=== PATIENT | female | born 1960 | race Two or more races ===

== ENCOUNTER 2021-08-04 14:58 | Inpatient (IN) | payer MEDICAID, OTHER ==
[~2021-08-04] VITALS: Ht 152.4 cm; Wt 98.4 kg
[2021-08-04] MEDS ORDERED: ONDANSETRON HCL 4 MG/2 ML VIAL IV ONE ×2 (16:00→16:45)
[2021-08-04] MEDS ORDERED: HYDROmorphone HCL 2 MG/ML VL IV ONE (16:00)
[2021-08-04] MEDS ORDERED: ONDANSETRON HCL 4 MG/2 ML VIAL ONE (16:38)
[2021-08-04] MEDS ORDERED: ACETAMINOPHEN 325 MG TAB PO PRN (21:00)
[2021-08-04] MEDS ORDERED: DOCUSATE SOD 100 MG CAP PO PRN (21:00)
[2021-08-04] MEDS ORDERED: hydrALAZINE HCL 20 MG/ML VL IV PRN (21:00)
[2021-08-04 21:50] LABS: Basophils # (auto) 0 10 ^3/uL (0-0.2); Basophils % (auto) 0.3 % (0.0-2.0); Eosinophils # (auto) 0 10 ^3/uL (0-0.8); Hematocrit 44.1 % (36.0-46.0); Hemoglobin 15.7 g/dL (12.2-16.2); Lymphocytes # (auto) 1.1 10 ^3/uL (0.4-5.4); Mean Corpuscular Hemoglobin 31.9 pg (28.0-32.0); Mean Corpuscular Hgb Conc. 35.6 g/dL (32.0-36.0); Mean Corpuscular Volume 89.7 fL (80.0-100.0); Monocytes # (auto) 0.2 10 ^3/uL (0-1.3); Monocytes % (auto) 1.7 % (0.0-12.0); Neutrophils # (auto) 12.2 10 ^3/uL (1.6-8.6); Nucleated Red Blood Cells % 0.2 %; Red Blood Cells 4.92 10^6/uL (4.0-5.20); Red Cell Distribution Width 13.1 % (11.8-14.3); White Blood Cell 13.6 10^3/uL (4.4-10.8)
[2021-08-04 21:53] LABS: BUN/Creatinine Ratio 30.9; Potassium 4.6 mmol/L (3.5-5.1)
[2021-08-04 21:55] LABS: Bilirubin, Total 0.5 mg/dL (0.2-1.0); Total Protein 8.2 g/dL (6.4-8.2)
[2021-08-04] MEDS ORDERED: DEXTROSE (50%) 50ML SYRG IV PRN (22:15)
[2021-08-04] MEDS ORDERED: KETOROLAC TROMETH 30 MG/ML 1ML VIAL IV PRN (23:15)
[2021-08-05 00:25] VITALS: BP 134/78
[2021-08-05 00:35] VITALS: BP 134/78
[2021-08-05] MEDS: ACCU-CHEK COMFORT CURVE STRIP VI SCH ×4 (01:27→18:09)
[2021-08-05] MEDS: SODIUM CHLORIDE 0.9% 1,000 ML IV SCH ×5 (01:28→15:35)
[2021-08-05] MEDS ORDERED: HYDR50TA15 PO (02:58)
[2021-08-05] MEDS ORDERED: CLON0.1T PO (02:58)
[2021-08-05] MEDS ORDERED: METF-370 PO (02:58)
[2021-08-05] MEDS ORDERED: ERTU15TA PO (02:58)
[2021-08-05] MEDS ORDERED: METO-289 PO (02:58)
[2021-08-05] MEDS ORDERED: LISI40TA11 PO (02:58)
[2021-08-05] MEDS: ONDANSETRON HCL 4 MG/2 ML VIAL IV PRN ×2 (04:21→11:01)
[2021-08-05] MEDS: MORPHINE SULFATE 4 MG/ML SYR/VIAL IV PRN ×3 (04:22→18:09)
[2021-08-05 04:57] VITALS: BP 142/82
[2021-08-05] MEDS: InsuLIN REG 1unit/0.01ml Soln (100units/ml) SC SCH ×4 (06:00→18:14)
[2021-08-05 08:35] VITALS: BP 160/93
[2021-08-05 08:53] LABS: Basophils # (auto) 0 10 ^3/uL (0-0.2); Basophils % (auto) 0.3 % (0.0-2.0); Eosinophils # (auto) 0.1 10 ^3/uL (0-0.8); Eosinophils % (auto) 0.6 % (0.0-7.0); Hematocrit 44.6 % (36.0-46.0); Hemoglobin 15.3 g/dL (12.2-16.2); Mean Corpuscular Hgb Conc. 34.3 g/dL (32.0-36.0); Mean Corpuscular Volume 90.6 fL (80.0-100.0); Monocytes # (auto) 0.8 10 ^3/uL (0-1.3); Monocytes % (auto) 7.8 % (0.0-12.0); Neutrophils # (auto) 7.4 10 ^3/uL (1.6-8.6); Neutrophils % (auto) 72.3 % (37.0-80.0); Nucleated Red Blood Cells % 0.1 %; Red Blood Cells 4.92 10^6/uL (4.0-5.20); Red Cell Distribution Width 13.2 % (11.8-14.3); White Blood Cell 10.3 10^3/uL (4.4-10.8)
[2021-08-05] MEDS: HYDROcodone-ACET 5/325MG TAB PO PRN (08:53)
[2021-08-05 09:05] LABS: Albumin 3.7 g/dL (3.4-5.0); Calcium 8.9 mg/dL (8.5-10.1)
[2021-08-05 09:10] LABS: BUN/Creatinine Ratio 38.5; Bilirubin, Total 0.7 mg/dL (0.2-1.0); Total Protein 7.7 g/dL (6.4-8.2)
[2021-08-05] MEDS ORDERED: FAMOTIDINE 20 MG TAB PO SCH (10:00)
[2021-08-05] MEDS ORDERED: ENOXAPARIN SOD 40 MG/0.4 ML SYRINGE SC SCH (10:00)
[2021-08-05] MEDS ORDERED: hydrALAZINE HCL 20 MG/ML VL IV PRN (12:00)
[2021-08-05] MEDS ORDERED: BUPIVACAINE 0.25% INJ 50ML VIAL ONE (12:07)
[2021-08-05] MEDS ORDERED: LIDOCAINE 1% HCL (LOCAL ANESTH.) INJ 20ML MDV ONE (12:07)
[2021-08-05] MEDS ORDERED: ROCURONIUM 10MG/ML 10ML VIAL IV ONE (12:18)
[2021-08-05] MEDS ORDERED: fentaNYL CITRATE 5 ML ONE (12:18)
[2021-08-05] MEDS ORDERED: ONDANSETRON HCL 4 MG/2 ML VIAL ONE (12:18)
[2021-08-05] MEDS ORDERED: fentaNYL CITRATE 100 MCG/2 ML VL ONE (12:18)
[2021-08-05] MEDS ORDERED: SODIUM CHLORIDE LOCK 20 ML ONE (12:18)
[2021-08-05] MEDS ORDERED: PROPOFOL 10 MG/ML 20 ML IV ONE (12:18)
[2021-08-05] MEDS ORDERED: DexAMETHasone SOD PHOS 10MG/1ML VIAL INJ ONE (12:18)
[2021-08-05] MEDS ORDERED: MIDAZOLAM HCL 2MG/2ML 2ml VIAL (1mg/ml) ONE (12:18)
[2021-08-05] MEDS ORDERED: ceFAZolin 1GM/50ML 100 ML IV ONE (13:03)
[2021-08-05] MEDS ORDERED: SUCCINYLCHOLINE CHLORIDE 20 MG/ML 10ML VIAL IV ONE (13:24)
[2021-08-05] MEDS ORDERED: MORPHINE SULFATE 4 MG/ML SYR/VIAL IV PRN (14:45)
[2021-08-05] MEDS ORDERED: METOCLOPRAMIDE HCL 5MG/ml INJ 2ml VIAL IV PRN (14:45)
[2021-08-05] MEDS ORDERED: HYDROmorphone HCL 2 MG/ML VL IV PRN (14:45)
[2021-08-05] MEDS ORDERED: ACCU-CHEK COMFORT CURVE STRIP VI ONE (14:45)
[2021-08-05 17:55] VITALS: BP 155/89
[2021-08-05 21:42] VITALS: BP 143/94
[2021-08-06] MEDS: METOPROLOL TARTRATE 25 MG TAB PO SCH ×3 (00:07→21:16)
[2021-08-06] MEDS: InsuLIN REG 1unit/0.01ml Soln (100units/ml) SC SCH ×5 (00:12→23:49)
[2021-08-06] MEDS: ACCU-CHEK COMFORT CURVE STRIP VI SCH ×5 (00:30→23:50)
[2021-08-06 05:00] VITALS: BP 141/82
[2021-08-06 05:44] LABS: Basophils # (auto) 0 10 ^3/uL (0-0.2); Basophils % (auto) 0.1 % (0.0-2.0); Eosinophils # (auto) 0 10 ^3/uL (0-0.8); Hematocrit 41.6 % (36.0-46.0); Hemoglobin 14.4 g/dL (12.2-16.2); Lymphocytes # (auto) 1.2 10 ^3/uL (0.4-5.4); Lymphocytes % (auto) 12.8 % (10.0-50.0); Mean Corpuscular Hemoglobin 31.4 pg (28.0-32.0); Mean Corpuscular Hgb Conc. 34.7 g/dL (32.0-36.0); Mean Corpuscular Volume 90.6 fL (80.0-100.0); Monocytes # (auto) 0.5 10 ^3/uL (0-1.3); Monocytes % (auto) 5.2 % (0.0-12.0); Neutrophils # (auto) 7.8 10 ^3/uL (1.6-8.6); Neutrophils % (auto) 81.9 % (37.0-80.0); Red Cell Distribution Width 12.8 % (11.8-14.3); White Blood Cell 9.5 10^3/uL (4.4-10.8)
[2021-08-06 06:05] LABS: Calcium 8.9 mg/dL (8.5-10.1); Magnesium 2.6 mg/dL (1.6-2.6)
[2021-08-06 06:07] LABS: BUN/Creatinine Ratio 32.6
[2021-08-06] MEDS: HYDROcodone-ACET 5/325MG TAB PO PRN ×3 (06:32→18:29)
[2021-08-06 09:05] VITALS: BP 148/86
[2021-08-06] MEDS ORDERED: OMEPRAZOLE 20MG/10ML ORAL SUSP PO SCH (10:00)
[2021-08-06 13:11] VITALS: BP 138/86
[2021-08-06 16:35] VITALS: BP 154/80
[2021-08-06 22:00] VITALS: BP 145/77
[2021-08-07] VITALS (7 sets, daily range): BP systolic 125–171; BP diastolic 67–91
[2021-08-07] MEDS: ACCU-CHEK COMFORT CURVE STRIP VI SCH ×3 (05:40→17:27)
[2021-08-07] MEDS: InsuLIN REG 1unit/0.01ml Soln (100units/ml) SC SCH ×3 (05:44→17:27)
[2021-08-07] MEDS: ENOXAPARIN SOD 40 MG/0.4 ML SYRINGE SC SCH (08:36)
[2021-08-07] MEDS: HYDROcodone-ACET 5/325MG TAB PO PRN ×2 (08:36→17:27)
[2021-08-07] MEDS: PANTOPRAZOLE 40 MG TAB PO SCH (08:36)
[2021-08-07] MEDS ORDERED: FLUTICASONE PROP NASAL SPR 0.05 % (50MCG) 16GM EACHNOSTRI ONE (09:30)
[2021-08-07] MEDS: LISINOPRIL 20 MG TAB PO SCH (10:07)
[2021-08-07] MEDS: METOPROLOL TARTRATE 25 MG TAB PO SCH ×2 (10:07→22:24)
[2021-08-07] MEDS ORDERED: POLYPOW89 PO (11:39)
[2021-08-07] MEDS ORDERED: HYDR-4902 PO (16:43)
[2021-08-08] MEDS: ACCU-CHEK COMFORT CURVE STRIP VI SCH ×3 (00:06→12:03)
[2021-08-08 05:00] VITALS: BP 135/83
[2021-08-08] MEDS: InsuLIN REG 1unit/0.01ml Soln (100units/ml) SC SCH ×3 (05:48→12:00)
[2021-08-08 09:00] VITALS: BP 106/76
[2021-08-08] MEDS: HYDROcodone-ACET 5/325MG TAB PO PRN ×2 (09:01→14:31)
[2021-08-08] MEDS: PANTOPRAZOLE 40 MG TAB PO SCH (09:01)
[2021-08-08] MEDS: METOPROLOL TARTRATE 25 MG TAB PO SCH (09:02)
[2021-08-08] MEDS: LISINOPRIL 20 MG TAB PO SCH (09:03)
[2021-08-08] MEDS: ENOXAPARIN SOD 40 MG/0.4 ML SYRINGE SC SCH (10:00)
[2021-08-08] MEDS ORDERED: HYDR-4902 PO (11:34)
[2021-08-08 13:00] VITALS: BP 146/82
== END 2021-08-08 15:20 | disposition home health service (06) | DRG 313 ==
LOC: EDBD 14:58 → ER 14:58 → OVERFLOW 20:58 → CENTRAL 23:04
PROVIDERS: ADMIT Internal Medicine; ATTEND Hospitalist
PROC: BQ1G1ZZ Fluoroscopy of Right Ankle using Low Osmolar Contrast (ICD-10-PCS; 2021-08-05)
PROC: 0QSJ04Z Reposition Right Fibula with Internal Fixation Device, Open Approach (ICD-10-PCS; principal; 2021-08-05 13:33)
DX: S82.851A Displaced trimalleolar fracture of right lower leg, initial encounter for closed fracture (principal); E11.42 Type 2 diabetes mellitus with diabetic polyneuropathy; D72.829 Elevated white blood cell count, unspecified; E11.9 Type 2 diabetes mellitus without complications; E66.01 Morbid (severe) obesity due to excess calories; I10 Essential (primary) hypertension; K21.9 Gastro-esophageal reflux disease without esophagitis; W01.0XXA Fall on same level from slipping, tripping and stumbling without subsequent striking against object, initial encounter; Z20.822 Contact with and (suspected) exposure to COVID-19; Z68.41 Body mass index [BMI] 40.0-44.9, adult; Z83.3 Family history of diabetes mellitus; Z90.710 Acquired absence of both cervix and uterus; Z90.49 Acquired absence of other specified parts of digestive tract; Y93.89 Activity, other specified; Y92.89 Other specified places as the place of occurrence of the external cause; Y99.8 Other external cause status
CPT/HCPCS: 36415; 71045; 73610; 76000; 80048; 80053; 82962; 83036; 83735; 85025; 85610; 86850; 86900; 86901; 93005; 96361; 96374; 96375; 96376; 97163; G0378; J0330; J0690; J1100; J1815; J2001; J2250; J2405; J2704; J3490